=== PATIENT | female | born 1990 | race Two or more races ===

== ENCOUNTER 2022-05-18 09:03 | Inpatient (IN) | payer OTHER ==
[~2022-05-18] VITALS: Ht 162.6 cm; Wt 3.2 kg
[2022-05-18] MEDS ORDERED: PRENATAL CAPLE1 EAC1 PO (10:09)
== END 2022-05-21 16:51 | disposition home or self-care (01) | DRG 788 ==
LOC: OB/GYN 09:03 → LDR 09:03 → O/R 13:42 → OB/GYN 15:42
PROVIDERS: ADMIT Specialist; ATTEND Specialist
PROC: 4A1HXCZ Monitoring of Products of Conception, Cardiac Rate, External Approach (ICD-10-PCS; 2022-05-18)
PROC: 10D00Z1 Extraction of Products of Conception, Low, Open Approach (ICD-10-PCS; principal; 2022-05-18 14:30)
DX: O34.211 Maternal care for low transverse scar from previous cesarean delivery (principal); Z3A.38 38 weeks gestation of pregnancy; Z37.0 Single live birth; Z20.822 Contact with and (suspected) exposure to COVID-19